=== PATIENT | male | born 1965 | race African-American/Black ===

== ENCOUNTER 2022-08-07 08:12 | Emergency (ER) | payer MEDICARE, MEDICAID ==
[~2022-08-07] VITALS: Ht 165.1 cm; Wt 75.0 kg
[2022-08-07] MEDS ORDERED: HYDROCODONE/ACETAMINOPHEN 5/325MG TABLET PO ONE (09:30)
[2022-08-07 10:35] VITALS: BP 135/81
== END 2022-08-07 16:50 | disposition home or self-care (01) ==
LOC: ER 08:12
DX: M54.2 Cervicalgia (principal); M54.6 Pain in thoracic spine; V49.9XXA Car occupant (driver) (passenger) injured in unspecified traffic accident, initial encounter; Y93.89 Activity, other specified; Y92.89 Other specified places as the place of occurrence of the external cause; Y99.8 Other external cause status
CPT/HCPCS: 71250; 72128; 99284